=== PATIENT | male | born 1960 | race Two or more races ===

== ENCOUNTER 2023-09-04 10:27 | Emergency (ER) | payer MEDICAID, OTHER ==
[2023-09-05] MEDS ORDERED: AMOX875T4 PO (22:21)
== END 2023-09-04 10:40 | disposition left against medical advice (07) ==
LOC: ER 10:27
DX: T14.8XXA Other injury of unspecified body region, initial encounter (principal); Z53.21 Procedure and treatment not carried out due to patient leaving prior to being seen by health care provider; X58.XXXA Exposure to other specified factors, initial encounter; Y93.9 Activity, unspecified; Y92.9 Unspecified place or not applicable; Y99.9 Unspecified external cause status

== ENCOUNTER 2023-09-05 18:15 | Emergency (ER) | payer MEDICAID ==
[~2023-09-05] VITALS: Ht 180.3 cm; Wt 71.9 kg
[2023-09-05 20:04] LABS: Basophils # (auto) 0 10 ^3/uL (0-0.2); Basophils % (auto) 0.5 % (0.0-2.0); Eosinophils # (auto) 0.9 10 ^3/uL (0-0.8); Eosinophils % (auto) 8.9 % (0.0-7.0); Hematocrit 50.2 % (41.0-53.0); Hemoglobin 16.8 g/dL (13.5-17.5); Lymphocytes # (auto) 1.9 10 ^3/uL (0.4-5.4); Lymphocytes % (auto) 19.8 % (10.0-50.0); Mean Corpuscular Hgb Conc. 33.5 g/dL (32.0-36.0); Mean Corpuscular Volume 89.5 fL (80.0-100.0); Monocytes # (auto) 0.8 10 ^3/uL (0-1.3); Monocytes % (auto) 8.6 % (0.0-12.0); Neutrophils % (auto) 62.2 % (37.0-80.0); Nucleated Red Blood Cells % 0.3 %; White Blood Cell 9.7 10^3/uL (4.4-10.8)
[2023-09-05 20:28] LABS: Alanine Aminotransferase 29 U/L (7-40); Albumin 4.7 g/dL (3.2-4.8); Alkaline Phosphatase 67 U/L (46-116); Anion Gap 4 (5-15); Aspartate Aminotransferase 24 U/L (13-40); Blood Urea Nitrogen 15 mg/dL (9-23); Calcium 10.2 mg/dL (8.5-10.1); Carbon Dioxide 30 mmol/L (20-30); Chloride 104 mmol/L (98-107); Glucose 93 mg/dL (74-106); Potassium 4.9 mmol/L (3.5-5.1); Sodium 138 mmol/L (136-145)
[2023-09-05 20:29] LABS: Bilirubin, Total 0.7 mg/dL (0.2-1.0); Total Protein 7.2 g/dL (5.7-8.2)
[2023-09-05 22:14] VITALS: BP 126/82; PULSE 72; RESP 16; TEMP 97.8; O2SAT 98
[2023-09-05] MEDS ORDERED: AMOX875T4 PO (22:21)
[2023-09-05] MEDS: ceFAZolin 1GM/50ML 50 ML IV ONE (22:54)
[2023-09-06] MEDS ORDERED: CLIN1CAP70 PO (19:10)
== END 2023-09-05 23:10 | disposition home or self-care (01) ==
LOC: ER 18:15
DX: L03.116 Cellulitis of left lower limb (principal)
CPT/HCPCS: 36415; 80053; 85025; 96365; 99284; J0690

== ENCOUNTER 2023-09-06 18:36 | Emergency (ER) | payer MEDICAID ==
[~2023-09-06] VITALS: Ht 180.3 cm; Wt 72.1 kg
[~2023-09-06 18:36] MED LIST: AMOX875T4 PO
[2023-09-06 18:39] VITALS: BP 125/63; PULSE 71; RESP 18; O2SAT 99
[2023-09-06] MEDS ORDERED: CLIN1CAP70 PO (19:10)
== END 2023-09-06 19:32 | disposition home or self-care (01) ==
LOC: ER 18:36
DX: L03.116 Cellulitis of left lower limb (principal); Z79.899 Other long term (current) drug therapy

== ENCOUNTER 2023-09-14 17:30 | Inpatient (IN) | payer MEDICAID ==
[~2023-09-14] VITALS: Ht 180.3 cm; Wt 76.3 kg
[~2023-09-14 17:30] MED LIST changes: +CLIN1CAP70 PO
[2023-09-14 19:30] LABS: Basophils # (auto) 0 10 ^3/uL (0-0.2); Basophils % (auto) 0.2 % (0.0-2.0); Eosinophils # (auto) 1.6 10 ^3/uL (0-0.8); Eosinophils % (auto) 14.5 % (0.0-7.0); Hematocrit 48.5 % (41.0-53.0); Hemoglobin 16.2 g/dL (13.5-17.5); Lymphocytes # (auto) 1.7 10 ^3/uL (0.4-5.4); Lymphocytes % (auto) 15.2 % (10.0-50.0); Mean Corpuscular Hgb Conc. 33.4 g/dL (32.0-36.0); Mean Corpuscular Volume 89.9 fL (80.0-100.0); Monocytes # (auto) 0.9 10 ^3/uL (0-1.3); Monocytes % (auto) 8.6 % (0.0-12.0); Neutrophils # (auto) 6.7 10 ^3/uL (1.6-8.6); Neutrophils % (auto) 61.5 % (37.0-80.0); Nucleated Red Blood Cells % 0.1 %; Red Cell Distribution Width 14.5 % (11.8-14.3); White Blood Cell 10.9 10^3/uL (4.4-10.8)
[2023-09-14 19:37] LABS: Chloride 107 mmol/L (98-107); Potassium 4.7 mmol/L (3.5-5.1); Sodium 139 mmol/L (136-145)
[2023-09-14 19:38] LABS: Anion Gap 6 (5-15); Carbon Dioxide 26 mmol/L (20-30)
[2023-09-14 19:39] LABS: Calcium 9.5 mg/dL (8.7-10.4)
[2023-09-14 19:43] LABS: BUN/Creatinine Ratio 13.3 (10.0-20.0); Blood Urea Nitrogen 15 mg/dL (9-23); Glucose 95 mg/dL (74-106)
[2023-09-14] MEDS: VANCOMYCIN 1GM/200ML 200 ML IV ONE (19:45)
[2023-09-14 19:46] LABS: INR 0.97 (0.9-1.15); Partial Thromboplastin Time 24.9 SEC (24.5-34.5); Prothrombin Time 10.3 sec (9.3-11.8)
[2023-09-14] MEDS: KETOROLAC TROMETH 30 MG/ML 1ML VIAL IV ONE (20:53)
[2023-09-14] MEDS: PIPERACILLIN-TAZO 4.5GM 100 ML IV ONE (20:54)
[2023-09-14] MEDS ORDERED: DOCUSATE SOD 100 MG CAP PO PRN (21:30)
[2023-09-14] MEDS ORDERED: ACETAMINOPHEN 325 MG TAB PO PRN (21:30)
[2023-09-14] MEDS ORDERED: ONDANSETRON HCL 4 MG/2 ML VIAL IV PRN (21:30)
[2023-09-14] MEDS ORDERED: VANCOMYCIN PER PHARMACY 0 MG IV SCH (21:30)
[2023-09-14] MEDS: VANCOMYCIN 1GM/200ML 200 ML IV SCH (22:00)
[2023-09-14] MEDS: SODIUM CHLORIDE 0.9% 1,000 ML IV SCH (22:00)
[2023-09-14] MEDS: ASCORBIC ACID 500 MG TAB PO SCH (22:11)
[2023-09-14] MEDS: HYDROcodone-ACET 5/325MG TAB PO PRN (22:11)
[2023-09-14] MEDS ORDERED: MORPHINE SULFATE INJ 2 MG/ml SYRG IV PRN (22:30)
[2023-09-14] MEDS ORDERED: NITROGLYCERIN 0.4 MG SL TAB SL PRN (22:30)
[2023-09-15 00:55] VITALS: PULSE 58; RESP 16; O2SAT 97
[2023-09-15] MEDS: PIPERACILLIN-TAZOB 3.375GM 100 ML IV SCH (04:20)
[2023-09-15 05:45] LABS: Hematocrit 41.8 % (41.0-53.0); Hemoglobin 14.2 g/dL (13.5-17.5); Mean Corpuscular Hemoglobin 30.4 pg (28.0-32.0); Mean Corpuscular Volume 89.5 fL (80.0-100.0); Red Blood Cells 4.67 10^6/uL (4.5-5.90); White Blood Cell 10.1 10^3/uL (4.4-10.8)
[2023-09-15 05:48] LABS: Band Neutrophils % (manual) 0; Basophils % (manual) 0 (0.0-2.0); Blast Cells 0; Metamyelocytes % 0; Myelocytes % 0; Promyelocytes % 0; Reactive Lymphocytes 0
[2023-09-15 06:03] LABS: Alanine Aminotransferase 14 U/L (7-40); Albumin 3.5 g/dL (3.2-4.8); Alkaline Phosphatase 52 U/L (46-116); Anion Gap 6 (5-15); Aspartate Aminotransferase 16 U/L (13-40); BUN/Creatinine Ratio 15.8 (10.0-20.0); Blood Urea Nitrogen 15 mg/dL (9-23); Calcium 8.6 mg/dL (8.5-10.1); Carbon Dioxide 21 mmol/L (20-30); Chloride 113 mmol/L (98-107); Glucose 114 mg/dL (74-106); Potassium 3.8 mmol/L (3.5-5.1); Sodium 140 mmol/L (136-145)
[2023-09-15 06:04] LABS: Bilirubin, Total 0.5 mg/dL (0.2-1.0); Total Protein 5.3 g/dL (5.7-8.2)
[2023-09-15 06:46] LABS: Eosinophils % (manual) 15 (0-7); Lymphocytes % (manual) 19 (10.0-50.0); Monocytes % (manual) 11 (0-12)
[2023-09-15 06:47] LABS: Platelet Estimate Adequate; RBC Morphology Normal
[2023-09-15] MEDS: MULTIPLE VITAMIN TAB PO SCH (10:40)
[2023-09-15 16:20] VITALS: BP 108/61; PULSE 56; RESP 18; RESP 20; TEMP 98.1; TEMP 98.4; O2SAT 96
[2023-09-15 17:04] VITALS: BP 108/61; PULSE 56; RESP 18; TEMP 98.4; O2SAT 96
[2023-09-15 20:00] VITALS: BP 114/57; PULSE 60; RESP 18; TEMP 98.1; O2SAT 93
[2023-09-15] MEDS ORDERED: LEVO112T2 PO (20:41)
[2023-09-15 21:00] VITALS: BP 114/57; PULSE 60; RESP 18; TEMP 98.1; O2SAT 93
[2023-09-15] MEDS: diphenhdrAMINE HCL 50 MG/1 ML VL IV PRN (23:49)
[2023-09-16 01:00] VITALS: BP 121/70; PULSE 50; RESP 18; TEMP 97.9; O2SAT 95
[2023-09-16 05:00] VITALS: BP 113/64; PULSE 60; RESP 17; TEMP 98.1; O2SAT 94
[2023-09-16 08:00] VITALS: BP 120/62; PULSE 68; RESP 16; TEMP 98.4; O2SAT 95
[2023-09-16 09:00] VITALS: BP 112/53; PULSE 52; RESP 18; TEMP 97.8; O2SAT 98
[2023-09-16] MEDS: PIPERACILLIN-TAZOB 3.375GM 100 ML IV SCH (09:44)
[2023-09-16 13:00] VITALS: BP 115/64; PULSE 54; RESP 18; TEMP 98; O2SAT 95
[2023-09-16] MEDS ORDERED: LEVO750T40 PO (13:24)
[2023-09-16] MEDS: VANCOMYCIN 1GM/200ML 200 ML IV SCH (13:59)
[2023-09-16 16:30] VITALS: BP 117/69; PULSE 55; RESP 17; TEMP 97.9; O2SAT 96
== END 2023-09-16 18:50 | disposition home or self-care (01) | DRG 383 ==
LOC: ER 17:30 → OVERFLOW 22:22 → WEST WING 09-15 16:14
PROVIDERS: ADMIT Nurse Practitioner Family; ATTEND Internal Medicine
DX: L03.116 Cellulitis of left lower limb (principal); E07.9 Disorder of thyroid, unspecified; R59.0 Localized enlarged lymph nodes; J44.9 Chronic obstructive pulmonary disease, unspecified; Z79.2 Long term (current) use of antibiotics; Z79.899 Other long term (current) drug therapy
CPT/HCPCS: 36415; 80048; 80053; 80202; 83605; 84443; 85007; 85025; 85027; 85610; 85730; 87040; 93971; 96361; 96365; 96366; 96375; G0378; J1885; J2543

== ENCOUNTER 2025-02-07 14:46 | Emergency (ER) | payer OTHER ==
[~2025-02-07] VITALS: Ht 180.3 cm; Wt 69.9 kg
[~2025-02-07 14:46] MED LIST changes: -AMOX875T4 PO; +CEPH500C PO; -CLIN1CAP70 PO; +LEVO112T2 PO
[2025-02-07] MEDS ORDERED: CEPH500C PO (16:02)
[2025-02-07 16:03] VITALS: BP 127/91; PULSE 84; RESP 16; TEMP 98; O2SAT 97
--- NOTE | 2025-02-07 16:06 | ED.PDOC ---
History of Present Illness(SKN HPI Comments A 64 YEAR OLD MALE PRESENTS TO THE ED WITH COMPLAINT OF AN INSECT BITE TO THE LEFT UPPER THIGH THAT STARTED 4 DAYS AGO. PATIENT REPORTS PLACING A BANDAID ON TOP OF THE BITE THEN WHEN TAKING IT OFF, IRRITATED HIS SKIN CAUSING REDNESS AROUND BITE SITE. PATIENT HAS NO DISCHARGE, BLEEDING, NUMBNESS OR TINGLING SENSATION TO BITE SITE. PATIENT DENIES FEVER, CHILLS, SHORTNESS OF BREATH, CHEST PAIN, ABDOMINAL PAIN, NAUSEA, VOMITING, HEADACHE, OR OTHER COMPLAINTS. NO OTHER SYMPTOMS OR MODIFYING FACTORS AT THIS TIME. PATIENT IS ALERT, ORIENTED X 4, AND HAS STEADY GAIT. Chief Complaint: Insect Bite Time Seen by MD: 15:50 Primary Care Provider: OSWALDO History of Present Illness: Nurses Notes, Medications, Allergies Allergies: Coded Allergies: NO KNOWN ALLERGIES (Unverified , 09/05/23) Home Meds Active Scripts Cephalexin Monohydrate (Cephalexin) 500 Mg Cap, 1 CAP PO QID, #28 CAP Prov:JAMIR ELIZALDE 02/07/25 Cephalexin Monohydrate (Cephalexin) 500 Mg Cap, 1 CAP PO QID, #40 CAP Prov:OSCAR CARMONA MD 09/26/23 Reported Medications Levothyroxine Sodium (Synthroid) 112 Mcg Tab, 1 TAB PO DAILY, #30 TAB 5 Refills 09/15/23 Information Source: Patient Mode of Arrival: Ambulatory Severity: Mild Timing: Days (4) Duration: Since onset, Days Prehospital treatment: None Location: Extremities (LEFT ANTERIOR THIGH ) Mechanism: Insect Occurence: Indoors Object: None Condition of Object: None Wound Type: Papule Immunization Status of Animal: Current Tetanus: UTD History of: None Associated Signs and Symptoms: Redness, Pain Past Medical History PAST MEDICAL HISTORY: High Lipids, Thyroid Surgical History: Denies all surgeries Family History Family History: Unknown Social History Smoker: Non-Smoker Alcohol: Occasionally Drugs: Denies Drug Use Lives In: Home Constitutional: denies: chills, diaphoresis, fatigue, fever, malaise, sweats, weakness, others EENTM: denies: blurred vision, double vision, ear bleeding, ear discharge, ear drainage, ear pain, ear ringing, eye pain, eye redness, hearing loss, mouth pain, mouth swelling, nasal discharge, nose bleeding, nose congestion, nose pain, photophobia, tearing, throat pain, throat swelling, voice changes, others Respiratory: denies: cough, hemoptysis, orthopnea, SOB at rest, shortness of breath, SOB with excertion, stridor, wheezing, others Cardiovascular: denies: chest pain, dizzy spells, diaphoresis, Dyspnea on exertion, edema, irregular heart beat, left arm pain, lightheadedness, pa lpitations, PND, syncope, others Gastrointestinal: denies: abdomen distended, abdominal pain, blood streaked bowels, constipated, diarrhea, dysphagia, difficulty swallowing, hematemesis, melena, nausea, poor appetite, poor fluid intake, rectal bleeding, rectal pain, vomiting, others Genitourinary: denies: burning, dysuria, flank pain, frequency, hematuria, incontinence, penile discharge, penile sore, pain, testicle pain, testicle swelling, urgency, others Neurological: denies: dizziness, fainting, headache, left sided numbness, left sided weakness, numbness, paresthesia, pre-existing deficit, right sided numbness, right sided weakness, seizure, speech problems, tingling, tremors, weakness, others Musculoskeletal: denies: back pain, gout, joint pain, joint swelling, muscle pain, muscle stiffness, neck pain, others Integumetry: reports: lumps (LEFT ANTERIOR THIGH. ), others (PUNCTURED WOUND ); denies: bruises, change in color, change in hair/nails, dryness, laceration, lesions, rash, wounds Allergic/Immunocompromised: denies: Difficulty Healing, Frequent Infections, Hives, Itching, others Hematologic/Lymphatic: denies: anemia, blood clots, easy bleeding, easy bruising, swollen glands, others Endocrine: denies: excessive hunger, excessive sweating, excessive thirst, excessive urination, flushing, intolerance to cold, intolerance to heat, unexplained weight gain, unexplained weight loss, others Psychiatric: denies: anxiety, bipolar disorder, depression, hopeless, panic disorder, schizophrenia, sleepless, suicidal, others All Other Systems: Reviewed and Negative Physical Exam General Appearance: No Apparent Distress, Normal HEENT: Normal ENT Inspection, PERRL/EOMI, Pharynx Normal, TMs Normal Neck: Full Range of Motion, Non-Tender, Normal, Normal Inspection Respiratory: Chest Non-Tender, Lungs Clear, No Accessory Muscle Use, No Respiratory Distress, Normal Breath Sounds Cardiovascular: No Edema, No JVD, No Murmur, No Gallop, Normal Peripheral Pulses, Regular Rate/Rhythm Breast Exam: Deferred Gastrointestinal: No Organomegaly, Non Tender, No Pulsatile Mass, Normal Bowel Sounds, Soft Genitalia: Deferred Pelvic: Deferred Rectal: Deferred Extremities: No calf tenderness, Normal capillary refill, Normal inspection, Normal range of motion, Non-tender, No pedal edema Musculoskeletal : Apperance: Normal Neurologic: Alert, cheese cooker II-XII nml as Tested, No Motor Deficits, Normal Affect, Normal Mood, No Sensory Deficits Cerebellar Function: Normal Reflexes: Normal Skin: Dry, Normal Color, Warm, Wounds (A SMALL VESICLE BUMP ON LEFT ANTERIOR THIGH, NO SWELLING AND PUS DRAINAGE, +BITE WOUND. ) Peripheral Pulses: 2+ carotid (R), 2+ carotid (L) Lymphatic: No Adenopathy Was a procedure done? Was a procedure done?: No Differential Diagnosis (INTG) Differential Diagnosis: Abrasion, Insect Envenomation, Puncture Wound Differential Diagnosis: Impetigo, Intertrigo X-Ray, Labs, Meds, VS Vital Signs Date Time Temp Pulse Resp B/P (MAP) Pulse Ox O2 Delivery O2 Flow Rate FiO2 02/07/25 16:03 84 16 97 Room Air 02/07/25 16:03 98.0 84 16 127/91 (103) 97 98.0 02/07/25 14:48 98.0 84 16 127/91 97 98.0 X-Ray, Labs, Meds, VS Comment EXTERNAL MEDICAL RECORDS REVIEWED: [NONE] INDEPENDENT HISTORIANS: [NONE] SOCIAL DETERMINANTS OF HEALTH: [NONE] LABS ORDERED: NONE REVIEWED AND INTERPRETED RESULTS: NONE IMAGING ORDERED: NONE TREATMENTS ORDERED: PROCEDURES PERFORMED: NONE CRITICAL CARE TIME: NONE I HAVE DISCUSSED THE PATIENT WITH THE ATTENDING PHYSICIAN, DR. WILL, HE AGREES WITH THE PATIENT'S PLAN OF CARE AND DISPOSITION. BASED ON HISTORY OF PRESENT ILLNESS, AND PHYSICAL EXAM, PATIENT WILL BE DISCHARGED HOME. DISCUSSED PLAN FOR DISCHARGE HOME WITH RX [KEFLEX ]. MEDICATION WARNINGS GIVEN. SHARED DECISION MAKING: DISCUSSED WITH PATIENT THAT THEIR WORKUP WAS NORMAL. PATIENT INSTRUCTED TO FOLLOW UP WITH PRIMARY CARE PROVIDER IN 1-2 DAYS FOR RE- EVALUATION OF SYMPTOMS. PATIENT VERBALIZES UNDERSTANDING TO RETURN TO ED FOR NEW OR WORSENING SYMPTOMS OR IF FOLLOW UP WITH PCP CANNOT BE OBTAINED. PATIENT FEELS COMFORTABLE GOING HOME AT THIS TIME. ALL QUESTIONS ADDRESSED AT TIME OF DISCHARGE. Time of 1ST Reevaluation: 16:19 Reevaluation 1ST: Improved Patient Education/Counseling: Diagnosis, Treatment, Need For Follow Up Family Education/Counseling: Diagnosis, Treatment, No Family Present Medical Screening: No EMC Exist At This Time SEPSIS Sepsis Screen Date sepsis recognized/suspect: Feb 07, 2025 Time Sepsis recognized/suspect: 1450 Recent Procedure: No On Antibiotic Therapy: No Respiratory Rate >20: No Heart Rate >90: No Temp<36 C (96.8 F) or >38.3 C: No SBP <90 or MAP <65 mmHG: No New Acute Mental Status Change: No Is the patient on CPAP, BIPAP,: No Vital Signs Date Time Temp Pulse Resp B/P (MAP) Pulse Ox O2 Delivery O2 Flow Rate FiO2 02/07/25 16:03 84 16 97 Room Air 02/07/25 16:03 98.0 84 16 127/91 (103) 97 98.0 02/07/25 14:48 98.0 84 16 127/91 97 98.0 Departure 1 Departure Time of Disposition: 16:20 Impression: Primary Impression: Insect bite Qualified Codes: S70.362A - Insect bite (nonvenomous), left thigh, initial encounter; W57.XXXA - Bitten or stung by nonvenomous insect and other nonvenomous arthropods, initial encounter Disposition: 01 HOME / SELF CARE / HOMELESS Condition: Stable Additional Instructions: FOLLOW-UP WITH PCP IN 1 TO 2 DAYS. TAKE MEDICATIONS PRESCRIBED. RETURN TO ED FOR ANY NEW OR WORSENING SYMPTOMS. e-Prescriptions Cephalexin Monohydrate (Cephalexin) 500 Mg Cap 1 CAP PO QID, #28 CAP Prov: JAMIR ELIZALDE 02/07/25 Discharged With: Self Critical Care Note Critical Care Time?: No Stability Stability form required: No I personally scribed for JAMIR ELIZALDE ([email or web address]) on 02/07/25 at 16:06. Electronically submitted by Lee Ann Cheney ([facility]). JAMIR ELIZALDE Feb 07, 2025 16:06
== END 2025-02-07 16:07 | disposition home or self-care (01) ==
LOC: ER 14:46
DX: S70.362A Insect bite (nonvenomous), left thigh, initial encounter (principal); E03.9 Hypothyroidism, unspecified; E78.5 Hyperlipidemia, unspecified; W57.XXXA Bitten or stung by nonvenomous insect and other nonvenomous arthropods, initial encounter; Y93.89 Activity, other specified; Y92.89 Other specified places as the place of occurrence of the external cause; Y99.8 Other external cause status

== ENCOUNTER 2025-02-14 15:44 | Emergency (ER) | payer OTHER ==
[~2025-02-14] VITALS: Ht 180.3 cm; Wt 70.6 kg
[2025-02-14 15:47] VITALS: BP 121/77; PULSE 58; RESP 16; TEMP 97.7; O2SAT 97
[2025-02-14] MEDS ORDERED: METH4PAK PO (16:38)
[2025-02-14] MEDS ORDERED: TRIA0.02 TOP (16:38)
--- NOTE | 2025-02-14 16:38 | ED.PDOC ---
History of Present Illness HPI Comments A 64 YEAR OLD MALE PRESENTS TO THE ED WITH COMPLAINT OF WOUND RECHECK OF INSECT BITE. PATIENT STATES HE HAS BEEN BY AN INSECT ON HIS LEFT UPPER THIGH 11 DAYS AGO AND CAME TO THIS ED FOR THIS COMPLAINT 7 DAYS AGO WHERE HE RECEIVED ANTIBIOTICS. PATIENT REPORTS HE PLACED TAPE OVER THIS INSECT BITE WOUND AND BEG AN TO EXPERIENCE REDNESS AND ITCHING ON HIS LEFT UPPER THIGH A RESULT. PATIENT IS CONCERNED THAT HE MAY BE HAVING AN ALLERGIC REACTION TO THE TAPE USED. PATIENT DENIES FEVER, CHILLS, SHORTNESS OF BREATH, CHEST PAIN, ABDOMINAL PAIN, NAUSEA, VOMITING, HEADACHE, OR OTHER COMPLAINTS. NO OTHER SYMPTOMS OR MODIFYING FACTORS AT THIS TIME. PATIENT IS ALERT, ORIENTED X 4, AND HAS STEADY GAIT. Chief Complaint: Wound Check Time Seen by MD: 15:46 Primary Care Provider: OSWALDO Reviewed Notes: Nurses Notes, Medications, Allergies Allergies: Coded Allergies: NO KNOWN ALLERGIES (Unverified , 09/05/23) Home Meds Active Scripts Triamcinolone Acetonide (Triamcinolone Acetonide) 0.025 % Cre, 1 APPLIC TOP BID, #30 GRAMS Prov:JAMIR ELIZALDE 02/14/25 Methylprednisolone (Medrol Dosepak) 4 Mg Isaac, 4 MG PO UD, #21 TAB UAD Prov:JAMIR ELIZALDE 02/14/25 Cephalexin Monohydrate (Cephalexin) 500 Mg Cap, 1 CAP PO QID, #28 CAP Prov:JAMIR ELIZALDE 02/07/25 Cephalexin Monohydrate (Cephalexin) 500 Mg Cap, 1 CAP PO QID, #40 CAP Prov:OSCAR CARMONA MD 09/26/23 Reported Medications Levothyroxine Sodium (Synthroid) 112 Mcg Tab, 1 TAB PO DAILY, #30 TAB 5 Refills 09/15/23 Information Source: Patient Mode of Arrival: Ambulatory Severity: Moderate Timing: Days Duration: Since onset, Days Prehospital treatment: None Medication Refill: For: Other (REDNESS OF LEFT UPPER THIGH) Past Medical History PAST MEDICAL HISTORY: High Lipids, Thyroid Surgical History: Denies all surgeries Family History Family History: Reviewed,noncontributory to illness Social History Smoker: Non-Smoker Alcohol: Occasionally Drugs: Denies Drug Use Lives In: Home Constitutional: denies: chills, diaphoresis, fatigue, fever, malaise, sweats, weakness, others EENTM: denies: blurred vision, double vision, ear bleeding, ear discharge, ear drainage, ear pain, ear ringing, eye pain, eye redness, hearing loss, mouth pain, mouth swelling, nasal discharge, nose bleeding, nose congestion, nose pain, photophobia, tearing, throat pain, throat swelling, voice changes, others Respiratory: denies: cough, hemoptysis, orthopnea, SOB at rest, shortness of breath, SOB with excertion, stridor, wheezing, others Cardiovascular: denies: chest pain, dizzy spells, diaphoresis, Dyspnea on exertion, edema, irregular heart beat, left arm pain, lightheadedness, palpitations, PND, syncope, others Gastrointestinal: denies: abdomen distended, abdominal pain, blood streaked bowels, constipated, diarrhea, dysphagia, difficulty swallowing, hematemesis, melena, nausea, poor appetite, poor fluid intake, rectal bleeding, rectal pain, vomiting, others Genitourinary: denies: burning, dysuria, flank pain, frequency, hematuria, incontinence, penile discharge, penile sore, pain, testicle pain, testicle swelling, urgency, others Neurological: denies: dizziness, fainting, headache, left sided numbness, left sided weakness, numbness, paresthesia, pre-existing deficit, right sided numbness, right sided weakness, seizure, speech problems, tingling, tremors, weakness, others Musculoskeletal: denies: back pain, gout, joint pain, joint swelling, muscle pain, muscle stiffness, neck pain, others Integumetry: reports: rash, others (REDNESS OF LEFT UPPER THIGH); denies: bruises, change in color, change in hair/nails, dryness, laceration, lesions, lumps, wounds Allergic/Immunocompromised: denies: Difficulty Healing, Frequent Infections, Hives, Itching, others Hematologic/Lymphatic: denies: anemia, blood clots, easy bleeding, easy bruising, swollen glands, others Endocrine: denies: excessive hunger, excessive sweating, excessive thirst, excessive urination, flushing, intolerance to cold, intolerance to heat, unexplained weight gain, unexplained weight loss, others Psychiatric: denies: anxiety, bipolar disorder, depression, hopeless, panic disorder, schizophrenia, sleepless, suicidal, others All Other Systems: Reviewed and Negative Physical Exam General Appearance: No Apparent Distress, Normal HEENT: Normal ENT Inspection, PERRL/EOMI, Pharynx Normal, TMs Normal Neck: Full Range of Motion, Non-Tender, Normal, Normal Inspection Respiratory: Chest Non-Tender, Lungs Clear, No Accessory Muscle Use, No Respiratory Distress, Normal Breath Sounds Cardiovascular: No Edema, No JVD, No Murmur, No Gallop, Normal Peripheral Pulses, Regular Rate/Rhythm Breast Exam: Deferred Gastrointestinal: No Organomegaly, Non Tender, No Pulsatile Mass, Normal Bowel Sounds, Soft Genitalia: Deferred Pelvic: Deferred Rectal: Deferred Extremities: No calf tenderness, Normal capillary refill, Normal inspection, Normal range of motion, Non-tender, No pedal edema Musculoskeletal : Apperance: Normal Neurologic: Alert, utilization specialist II-XII nml as Tested, No Motor Deficits, Normal Affect, Normal Mood, No Sensory Deficits Cerebellar Function: Normal Reflexes: Normal Skin: Dry, Normal Color, Rash (ERYTHEMA SANDS SKIN RASH ON LEFT INNER THIGH, NO TENDERNESS, SWELLING AND DEFORMITY. ), Warm Peripheral Pulses: 2+ carotid (R), 2+ carotid (L) Lymphatic: No Adenopathy Was a procedure done? Was a procedure done?: No Differential Dx Considerations may include: ALLERGIC CONTACT DERMATITIS, ALLERGIC REACTION, INSECT BITE WOUND, WOUND RECHECK, WOUND INFECTION X-Ray, Labs, Meds, VS Vital Signs Date Time Temp Pulse Resp B/P (MAP) Pulse Ox O2 Delivery O2 Flow Rate FiO2 02/14/25 15:47 97.7 58 16 121/77 97 97.7 X-Ray, Labs, Meds, VS Comment EXTERNAL MEDICAL RECORDS REVIEWED: [NONE] INDEPENDENT HISTORIANS: [NONE] SOCIAL DETERMINANTS OF HEALTH: [NONE] LABS ORDERED: NONE REVIEWED AND INTERPRETED RESULTS: NONE IMAGING ORDERED: NONE TREATMENTS ORDERED: NONE PROCEDURES PERFORMED: NONE CRITICAL CARE TIME: NONE I HAVE DISCUSSED THE PATIENT WITH THE ATTENDING PHYSICIAN DR. ESCOBAR AND HE AGREES WITH THE PATIENT'S PLAN OF CARE AND DISPOSITION. BASED ON HISTORY OF PRESENT ILLNESS, AND PHYSICAL EXAM, PATIENT WILL BE DISCHARGED HOME. DISCUSSED PLAN FOR DISCHARGE HOME WITH RX [TRIAMCINOLONE CREAM AND MEDROL DOSEPAK]. MEDICATION WARNINGS GIVEN. SHARED DECISION MAKING: PATIENT INSTRUCTED TO FOLLOW UP WITH PRIMARY CARE Olinda ZIEGLER IN 1-2 DAYS FOR RE-EVALUATION OF SYMPTOMS. PATIENT VERBALIZES UNDERSTANDING TO RETURN TO ED FOR NEW OR WORSENING SYMPTOMS OR IF FOLLOW UP WITH PCP CANNOT BE OBTAINED. PATIENT FEELS COMFORTABLE GOING HOME AT THIS TIME. ALL QUESTIONS ADDRESSED AT TIME OF DISCHARGE. Time of 1ST Reevaluation: 16:40 Reevaluation 1ST: Improved Patient Education/Counseling: Diagnosis, Treatment, Need For Follow Up Family Education/Counseling: Diagnosis, Treatment, Need For Follow Up Medical Screening: No EMC Exist At This Time SEPSIS Sepsis Screen Date sepsis recognized/suspect: Feb 14, 2025 Time Sepsis recognized/suspect: 1550 Recent Procedure: No On Antibiotic Therapy: No Respiratory Rate >20: No Heart Rate >90: No Temp<36 C (96.8 F) or >38.3 C: No SBP <90 or MAP <65 mmHG: No New Acute Mental Status Change: No Is the patient on CPAP, BIPAP,: No Vital Signs Date Time Temp Pulse Resp B/P (MAP) Pulse Ox O2 Delivery O2 Flow Rate FiO2 02/14/25 15:47 97.7 58 16 121/77 97 97.7 Departure 1 Departure Time of Disposition: 16:40 Impression: Primary Impression: Allergic contact dermatitis Qualified Codes: L23.1 - Allergic contact dermatitis due to adhesives Disposition: 01 HOME / SELF CARE / HOMELESS Condition: Stable Additional Instructions: FOLLOW-UP WITH PCP IN 1 TO 2 DAYS. TAKE MEDICATIONS PRESCRIBED. RETURN TO ED FOR ANY NEW OR WORSENING SYMPTOMS. e-Prescriptions Triamcinolone Acetonide (Triamcinolone Acetonide) 0.025 % Cre 1 APPLIC TOP BID, #30 GRAMS Prov: JAMIR ELIZALDE 02/14/25 Methylprednisolone (Medrol Dosepak) 4 Mg Isaac 4 MG PO UD, #21 TAB UAD Prov: JAMIR ELIZALDE 02/14/25 Discharged With: Self Critical Care Note Critical Care Time?: No Stability Stability form required: No I personally scribed for JAMIR ELIZALDE ([email or web address]) on 02/14/25 at 16:38. Electronically submitted by Joao Rosenthal ([email or web address]). JAMIR ELIZALDE Feb 14, 2025 16:38
== END 2025-02-14 16:41 | disposition home or self-care (01) ==
LOC: ER 15:47
DX: L23.1 Allergic contact dermatitis due to adhesives (principal); W57.XXXA Bitten or stung by nonvenomous insect and other nonvenomous arthropods, initial encounter; Y93.89 Activity, other specified; Y92.89 Other specified places as the place of occurrence of the external cause; Y99.8 Other external cause status